=== PATIENT | female | born 1990 | race Caucasian/White ===

== ENCOUNTER 2018-09-16 10:53 | Emergency (ER) | payer BC, MEDICAID, SELFPAY ==
[2018-09-16 11:05] VITALS: BP 131/83
--- NOTE | 2018-09-16 13:51 | EDM.PDOC ---
ED HPI GENERAL MEDICAL PROBLEM - General Chief Complaint: Neurological Problem Stated Complaint: VERAS, generalized fatigue Time Seen by Provider: 09/16/18 11:43 Source of Information: Reports: Patient History Limitations: Reports: No Limitations - History of Present Illness INITIAL COMMENTS - FREE TEXT/NARRATIVE: Patient is a 28-year-old female presents ED complaining of several issues. Patient states for the past 2 weeks or so she has felt tired and weak and falls asleep easily. She's also had 3 episodes of bloody nose last week as well. She states with sitting she can falls asleep instantly. In addition she's had a headache on and off since onset of symptoms. Headache is generalized with gradual onset. She denies any vision changes, recent trauma to her head, nuchal rigidity, fever, or any focal neurological deficits. She is a poor historian and describing the headache further. Unclear if this is the tension or cluster type headache. She has no history of migraines. She denies any photosensitivity or hyperacusis. She states she normally gets to bed approximately 10:00 at night and wakes up at 5:30 in the morning. There's been no changes in her pattern. She denies feeling depressed, suicidal, or have any thoughts of suicide. She has not been lacking motivation. She denies any shortness of breath , chest pain, increased weight, fever, sinus congestion, sore throat, dull pain , dysuria, or being . She just recently had her IUD removed 1 week ago. She denies being such active or being . She states over the weekend she did have a few episodes of having difficulty with coming up with words. This only lasted for a short period of time. There is no slurred speech noted. 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 She has no pain to her thyroid noted. Right Upper Arm Pain Score (Numeric/FACES): 2 - Related Data Allergies Allergy/AdvReac Type Severity Reaction Status Date / Time ketorolac tromethamine Allergy Rash Verified 11/24/16 12:07 CDT [From Toradol] NSAIDS (Non-Steroidal Allergy Swelling Verified 09/16/18 11:10 Anti-Inflamma Sulfa (Sulfonamide Allergy Hives Verified 11/24/16 12:07 CDT Antibiotics) Home Meds: Home Meds Levothyroxine 75 mcg PO DAILY 01/27/14 [History] Montelukast Sodium [Singulair] 10 mg PO DAILY 09/10/14 [History] Omeprazole [Prilosec] 20 mg PO DAILY 09/10/14 [History] Cholecalciferol (Vitamin D3) [Vitamin D3] 10,000 units PO QAM 09/11/16 [History] Fish Oil/[place]-3 Fatty Acids [Fish Oil 1,000 MG] 1,000 mg PO DAILY 09/11/16 [ History] Sertraline HCl [Zoloft] 50 mg PO DAILY 09/11/16 [History] buPROPion [Wellbutrin] 100 mg PO DAILY 09/11/16 [History] Past Medical History HEENT History: Reports: None, Allergic Rhinitis Cardiovascular History: Reports: None Respiratory History: Reports: Asthma Other Respiratory History: UARS...upper airway resistance syndrome Gastrointestinal History: Reports: GERD Genitourinary History: Reports: None 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: Reports: Musculoskeletal History: Reports: Fracture Other Musculoskeletal History: hx of fx wrist and elbow Neurological History: Reports: None Psychiatric History: Reports: Anxiety Endocrine/Metabolic History: Reports: Hypothyroidism, Obesity/BMI 30+ Other Endocrine/Metabolic History: Hoshimotos disease Hematologic History: Reports: None Immunologic History: Reports: None Oncologic (Cancer) History: Reports: None Dermatologic History: Reports: None - Past Surgical History Head Surgeries/Procedures: Reports: None HEENT Surgical History: Reports: Tonsillectomy Cardiovascular Surgical History: Reports: None Respiratory Surgical History: Reports: None GI Surgical History: Reports: Colonoscopy, EGD Female Surgical History: Reports: None Endocrine Surgical History: Reports: None Neurological Surgical History: Reports: None Musculoskeletal Surgical History: Reports: None Oncologic Surgical History: Reports: None Dermatological Surgical History: Reports: None Social & Family History - Family History Cardiac: Reports: Heart Failure, High Cholesterol : Reports: Cystic Kidney Disease OBGYN: Reports: Endocrine/Metabolic: Reports: Diabetes, type II, Hyperthyroidism Oncologic: Reports: Breast - Tobacco Use Smoking Status *Q: Never Smoker - Caffeine Use Caffeine Use: Reports: Energy Drinks - Recreational Drug Use Recreational Drug Use: No ED ROS GENERAL - Review of Systems Review Of Systems: ROS reveals no pertinent complaints other than HPI. ED EXAM, GENERAL - Physical Exam Exam: See Below Exam Limited By: No Limitations General Appearance: Alert, WD/WN, No Apparent Distress Eye Exam: Bilateral Eye: EOMI, Nystagmus (None noted), PERRL, Vision Changes ( None noted) Ears: Normal External Exam, Normal Canal, Hearing Grossly Normal, Normal TMs Nose: Normal Inspection, Normal Mucosa, No Blood, Other (Along the right septum there is a small scab present. No active bleeding.) Throat/Mouth: Normal Inspection, Normal Oropharynx, Normal Voice, No Airway Compromise Head: Atraumatic, Normocephalic Neck: Normal Inspection, Supple Respiratory/Chest: No Respiratory Distress, Lungs Clear, Normal Breath Sounds, No Accessory Muscle Use, Chest Non-Tender Cardiovascular: Normal Peripheral Pulses, Regular Rate, Rhythm, No Murmur Peripheral Pulses: 2+: Radial (L), Radial (R) GI/Abdominal: Normal Bowel Sounds, Soft, Non-Tender, No Distention Extremities: Normal Inspection, Normal Range of Motion, Non-Tender, No Pedal Edema Neurological: Alert, Oriented, CN II-XII Intact, Normal Cognition, No Motor/ Sensory Deficits, Other (No facial droop, slurred speech, tongue deviation. No weakness discrepancies to the upper and lower extremities. Finger to nose and rapid alternating movements are intact. Gait is normal.) Psychiatric: Normal Affect, Normal Mood Skin Exam: Warm, Dry, Intact, Normal Color Course - Vital Signs Last Recorded V/S: Last Vital Signs Temp 98.1 F 09/16/18 11:04 Pulse 71 09/16/18 11:04 Resp 20 09/16/18 11:04 BP 131/83 09/16/18 11:04 Pulse Ox 99 09/16/18 11:04 - Orders/Labs/Meds Labs: Laboratory Tests 09/16/18 09/16/18 09/16/18 Range/Units 12:09 12:09 12:21 WBC 7.87 (3.98-10.04) K/mm3 RBC 4.96 (3.98-5.22) M/mm3 Hgb 11.8 (11.2-15.7) gm/L Hct 37.6 (34.1-44.9) % MCV 75.8 L (79.4-94.8) fl MCH 23.8 L (25.6-32.2) pg MCHC 31.4 L (32.2-35.5) g/dl RDW Std Deviation 47.8 H (36.4-46.3) fL Plt Count 319 (182-369) K/mm3 MPV 10.1 (9.4-12.3) fl Neutrophils % (Manual) 59 (40-60) % Band Neutrophils % 0 (0-10) % Lymphocytes % (Manual) 26 (20-40) % Atypical Lymphs % 0 % Monocytes % (Manual) 8 (2-10) % Eosinophils % (Manual) 4 (0.7-5.8) % Basophils % (Manual) 3 H (0.1-1.2) Platelet Estimate Adequate Plt Morphology Comment Hypochromasia 1+ slight Anisocytosis 2+ moderate RBC Morph Comment Abnormal Sodium (136-145) mEq/L Potassium (3.5-5.1) mEq/L Chloride (98-107) mEq/L Carbon Dioxide (21-32) mEq/L Anion Gap (5-15) BUN (7-18) mg/dL Creatinine (0.55-1.02) mg/dL Est Cr Clr Drug Dosing mL/min Estimated GFR (MDRD) (>60) mL/min BUN/Creatinine Ratio (14-18) Glucose (74-106) mg/dL Calcium (8.5-10.1) mg/dL Total Bilirubin (0.2-1.0) mg/dL AST (15-37) U/L ALT (14-59) U/L Alkaline Phosphatase (46-116) U/L Total Protein (6.4-8.2) g/dl Albumin (3.4-5.0) g/dl Globulin gm/dL Albumin/Globulin Ratio (1-2) Free T4 (0.76-1.46) ng/dL TSH 3rd Generation (0.358-3.74) uIU/mL Urine Color Yellow (Yellow) Urine Appearance Clear (Clear) Urine pH 7.0 (5.0-8.0) Ur Specific [place] 1.020 (1.005-1.030) Urine Protein Negative (Negative) Urine Glucose (UA) Negative (Negative) Urine Ketones Negative (Negative) Urine Occult Blood Negative (Negative) Urine Nitrite Negative (Negative) Urine Bilirubin Negative (Negative) Urine Urobilinogen 0.2 (0.2-1.0) Ur Leukocyte Esterase Negative (Negative) Urine RBC Not seen (0-5) /hpf Urine WBC Not seen (0-5) /hpf Ur Epithelial Cells 0-5 (0-5) /hpf Urine Bacteria Few (FEW) /hpf Urine Mucus Few (FEW) /hpf Urine HCG, Qual Negative (NEGATIVE) 09/16/18 Range/Units 12:21 WBC (3.98-10.04) K/mm3 RBC (3.98-5.22) M/mm3 Hgb (11.2-15.7) gm/L Hct (34.1-44.9) % MCV (79.4-94.8) fl MCH (25.6-32.2) pg MCHC (32.2-35.5) g/dl RDW Std Deviation (36.4-46.3) fL Plt Count (182-369) K/mm3 MPV (9.4-12.3) fl Neutrophils % (Manual) (40-60) % Band Neutrophils % (0-10) % Lymphocytes % (Manual) (20-40) % Atypical Lymphs % % Monocytes % (Manual) (2-10) % Eosinophils % (Manual) (0.7-5.8) % Basophils % (Manual) (0.1-1.2) Platelet Estimate Plt Morphology Comment Hypochromasia Anisocytosis RBC Morph Comment Sodium 138 (136-145) mEq/L Potassium 3.8 (3.5-5.1) mEq/L Chloride 102 (98-107) mEq/L Carbon Dioxide 23 (21-32) mEq/L Anion Gap 16.8 H (5-15) BUN 14 (7-18) mg/dL Creatinine 0.8 (0.55-1.02) mg/dL Est Cr Clr Drug Dosing 79.00 mL/min Estimated GFR (MDRD) > 60 (>60) mL/min BUN/Creatinine Ratio 17.5 (14-18) Glucose 75 (74-106) mg/dL Calcium 9.1 (8.5-10.1) mg/dL Total Bilirubin 0.3 (0.2-1.0) mg/dL AST 12 L (15-37) U/L ALT 18 (14-59) U/L Alkaline Phosphatase 74 (46-116) U/L Total Protein 7.7 (6.4-8.2) g/dl Albumin 3.7 (3.4-5.0) g/dl Globulin 4.0 gm/dL Albumin/Globulin Ratio 0.9 L (1-2) Free T4 0.85 (0.76-1.46) ng/dL TSH 3rd Generation 3.485 (0.358-3.74) uIU/mL Urine Color (Yellow) Urine Appearance (Clear) Urine pH (5.0-8.0) Ur Specific [place] (1.005-1.030) Urine Protein (Negative) Urine Glucose (UA) (Negative) Urine Ketones (Negative) Urine Occult Blood (Negative) Urine Nitrite (Negative) Urine Bilirubin (Negative) Urine Urobilinogen (0.2-1.0) Ur Leukocyte Esterase (Negative) Urine RBC (0-5) /hpf Urine WBC (0-5) /hpf Ur Epithelial Cells (0-5) /hpf Urine Bacteria (FEW) /hpf Urine Mucus (FEW) /hpf Urine HCG, Qual (NEGATIVE) - Re-Assessments/Exams Free Text/Narrative Re-Assessment/Exam: On physical exam patient has no neurological deficits. She has minimal symptoms at this time. Headache is mild in nature generalized. 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 She has no pain to the thyroid with palpation. No swelling noted as well. Physical findings are within normal limits. Initial labs and studies will include: CBC, chem 14, TSH, free T4, UA, and beta hCG. Labs reviewed: White blood cell count 7.87, hemoglobin 11.8, MCV 75.8, platelet count 319, hypochromasia 1+, anisocytosis 2+. Sodium 138, potassium 3.8, creatinine 0.8, free T4 0.85, and TSH levels 3.485. UA was negative. HCG negative. I discussed lab results with the patient. Again I suspect cause of current symptoms is more likely depression in origin. I will have patient follow up with PCP in the next 3-5 days for reevaluation. Return precautions were discussed with the patient. Patient had no further questions or concerns. She agreed with plan. Departure - Departure Time of Disposition: 14:15 Disposition: Home, Self-Care 01 Condition: Good Clinical Impression: Fatigue Qualifiers: Fatigue type: due to depression Qualified Code(s): F32.9 - Major depressive disorder, single episode, unspecified - Discharge Information Instructions: Fatigue Referrals: Sonia Teran NP [Primary Care Provider] - Forms: ED Department Discharge Additional Instructions: Please follow up with your PCP in the next 3-5 days for reevaluation for fatigue caused by depression. Call make an appointment. Please monitor for any new or worsening symptoms. If so please return back to the ED for reevaluation.
== END 2018-09-16 14:22 | disposition home or self-care (01) ==
LOC: JD.ED 10:53
DX: F32.9 Major depressive disorder, single episode, unspecified (principal); E03.9 Hypothyroidism, unspecified; K21.9 Gastro-esophageal reflux disease without esophagitis; F41.9 Anxiety disorder, unspecified; Z79.899 Other long term (current) drug therapy; Z88.2 Allergy status to sulfonamides; Z88.6 Allergy status to analgesic agent; Z88.8 Allergy status to other drugs, medicaments and biological substances
CPT/HCPCS: 36415; 80053; 81001; 81025; 84439; 84443; 85007; 85027; 99282; 99283